=== PATIENT | female | born 1985 | race Caucasian/White ===

== ENCOUNTER 2016-07-30 09:21 | Emergency (ER) | payer OTHER ==
[2016-07-30 09:35] VITALS: RESP 18
--- NOTE | 2016-07-30 09:42 | CPEKG ---
Heart Rate: 81 RR Interval: 741 P-R Interval: 156 QRSD Interval: 104 QT Interval: 380 QTC Interval: 441 P Elba: 64 QRS Elba: -63 T Wave Elba: 49 EKG Severity - OTHERWISE NORMAL ECG - EKG Impression: SINUS RHYTHM EKG Impression: LEFT AXIS DEVIATION Electronically Signed By: Mattie Aj 30-Jul-2016 16:09:40
--- NOTE | 2016-07-30 09:58 | EDPHY ---
H & P Time Seen by Provider: 07/30/16 09:40 HPI/ROS: CHIEF COMPLAINT: Chest tightness HISTORY OF PRESENT ILLNESS: This patient is a 31-year-old female who presents to the Emergency Department complaining of episodic left-sided chest tightness over the past few weeks. In May, she first experienced an episode of acute onset chest tightness, dyspnea, and lightheadedness while [place] the [place] in [facility]. On Saturday, two days prior to arrival, her complaints recurred when she arrived in [facility]; she was unable to hike secondary to lightheadedness but felt normal by the time she returned to [place]. Yesterday, she began to experience similar sensation of dyspnea and chest tightness while riding her bicycle in town. She has had a persistent squeezing sensation to her left anterior chest since that time. She denies leg pain or swelling. No history of DVT or PE, no oral contraceptive use. She is a non-smoker. Familial history of CAD. REVIEW OF SYSTEMS: Constitutional: No fever, no chills Eyes: No visual changes ENT: No sore throat Respiratory: No cough, +shortness of breath Cardiac: +chest discomfort Gastrointestinal: No nausea, no vomiting, no abdominal pain Genitourinary: No hematuria, no dysuria Musculoskeletal: No leg pain or swelling Skin: No rash Neurological: +lightheadedness, no headache, no numbness, no weakness Psychiatric: No depression Past Medical/Surgical History: Denies Social History: Non-smoker. Drinks alcohol socially. Lives in [place]. Smoking Status: Never smoked Physical Exam: General Appearance: Alert, no distress Eyes: Pupils equal and round, no conjunctival pallor or injection ENT, Mouth: Mucous membranes moist Neck: Normal inspection Respiratory: Lungs are clear to auscultation Cardiovascular: Regular rate and rhythm Gastrointestinal: Abdomen is soft and non- tender Neurological: A&O, nonfocal, normal gait Skin: Warm and dry, no rash Extremities: Nontender, no pedal edema Psychiatric: Mood and affect normal Constitutional: Initial Vital Signs Temperature (C) 36.7 C 07/30/16 09:25 Heart Rate 87 07/30/16 09:25 Respiratory Rate 18 07/30/16 09:25 Blood Pressure 115/81 H 07/30/16 09:25 O2 Sat (%) 99 07/30/16 09:25 O2 Delivery Mode Room Air Allergies/Adverse Reactions: No Known Allergies Allergy (Unverified 07/30/16 09:32) Home Medications: Medication Instructions Recorded NK [No Known Home Meds] 07/30/16 Medical Decision Making - Diagnostics EKG Interpretation: EKG interpreted by me reveals normal sinus rhythm, rate 81; left axis deviation ; no ST/T changes. Interpretation: normal EKG Imaging Results: Imaging Impressions Chest X-Ray 07/30/16 09:40 Impression: No acute findings in the chest. ED Course/Re-evaluation: 31-year-old female presents to the ED with complaints of episodic exertional dyspnea and chest tightness since May, most severe yesterday and today. She has no risk factors for cardiac disease or PE; however, will proceed with workup for both given her story. Labs obtained and are within normal ranges. D-dimer is negative. Chest x-ray reviewed by me is negative for acute disease. EKG obtained and is normal (as above). I discussed lab and imaging findings with the patient. She understands that she will need to follow-up with a primary care provider for further evaluation, possibly an echocardiogram. She is given strict return precautions and will be discharged home in good condition. After careful consideration and evaluation, I find no evidence of acute coronary syndrome. The patient has no risk factors for coronary disease, normal EKG and normal studies. In addition, I feel that I can safely exclude pulmonary embolism, with normal vital signs, normal oxygen saturation and normal D-dimer. In addition there is no evidence of pneumothorax, pneumonia, aortic dissection. Feel that she is safe and stable for discharge home. She will follow up tomorrow at [facility] as previously scheduled. Differential Diagnosis: Differential diagnosis includes though it is not limited to pneumonia, pneumothorax, pulmonary embolism, aortic dissection, pericarditis, acute coronary syndrome. - Data Points Laboratory Results: Laboratory Results 07/30/16 09:50 07/30/16 09:50 07/30/16 07/30/16 07/30/16 09:50 09:50 09:50 WBC RBC Hgb Hct MCV MCH MCHC RDW Plt Count MPV Neut % (Auto) Lymph % (Auto) [place] % (Auto) Eos % (Auto) Baso % (Auto) Nucleat RBC Rel Count Absolute Neuts (auto) Absolute Lymphs (auto) Absolute Monos (auto) Absolute Eos (auto) Absolute Basos (auto) Absolute Nucleated RBC Immature Gran % Immature Gran # D-Dimer < 0.27 ug/mLFEU ug/mLFEU (0.00-0.50) Sodium 140 mEq/L mEq/L (134-144) Potassium 4.2 mEq/L mEq/L (3.5-5.2) Chloride 105 mEq/L mEq/L (97-110) Carbon Dioxide 24 mEq/l mEq/l (22-31) Anion Gap 11 mEq/L mEq/L (8-16) BUN 15 mg/dL mg/dL (7-23) Creatinine 0.8 mg/dL mg/dL (0.6-1.0) Estimated GFR > 60 Glucose 92 mg/dL mg/dL (70-100) Calcium 10.2 mg/dL mg/dL (8.5-10.4) Beta HCG, Qual NEGATIVE 07/30/16 09:50 WBC 5.83 10^3/uL 10^3/uL (3.80-9.50) RBC 4.86 10^6/uL 10^6/uL (4.18-5.33) Hgb 14.8 g/dL g/dL (12.6-16.3) Hct 43.9 % % (38.0-47.0) MCV 90.3 fL fL (81.5-99.8) MCH 30.5 pg pg (27.9-34.1) MCHC 33.7 g/dL g/dL (32.4-36.7) RDW 14.2 % % (11.5-15.2) Plt Count 270 10^3/uL 10^3/uL (150-400) MPV 9.7 fL fL (8.7-11.7) Neut % (Auto) 52.5 % % (39.3-74.2) Lymph % (Auto) 37.2 % % (15.0-45.0) [place] % (Auto) 7.4 % % (4.5-13.0) Eos % (Auto) 2.2 % % (0.6-7.6) Baso % (Auto) 0.5 % % (0.3-1.7) Nucleat RBC Rel Count 0.0 % % (0.0-0.2) Absolute Neuts (auto) 3.06 10^3/uL 10^3/uL (1.70-6.50) Absolute Lymphs (auto) 2.17 10^3/uL 10^3/uL (1.00-3.00) Absolute Monos (auto) 0.43 10^3/uL 10^3/uL (0.30-0.80) Absolute Eos (auto) 0.13 10^3/uL 10^3/uL (0.03-0.40) Absolute Basos (auto) 0.03 10^3/uL 10^3/uL (0.02-0.10) Absolute Nucleated RBC 0.00 10^3/uL 10^3/uL (0-0.01) Immature Gran % 0.2 % % (0.0-1.1) Immature Gran # 0.01 10^3/uL 10^3/uL (0.00-0.10) D-Dimer Sodium Potassium Chloride Carbon Dioxide Anion Gap BUN Creatinine Estimated GFR Glucose Calcium Beta HCG, Qual Departure - Departure Disposition: Home, Routine, Self-Care Clinical Impression: Dyspnea Qualifiers: Dyspnea type: dyspnea on exertion Qualified Code(s): R06.09 - Other forms of dyspnea Chest pain Qualifiers: Chest pain type: chest pain on breathing Qualified Code(s): R07.1 - Chest pain on breathing Condition: Good Instructions: Dyspnea (ED) Additional Instructions: 1. Follow-up with a primary care provider tomorrow as scheduled for further evaluation of your shortness of breath and chest discomfort. 2. Return to the Emergency Department with worsening chest pain, increased shortness of breath, lightheadedness or fainting, weakness, confusion, or for other serious concerns. Referrals: Tamika Maldonado, [Doctor of Osteopathy] - As per Instructions Report Scribed for: Mattie Aj Report Scribed by: Cassandra Schmidt Date of Report: 07/30/16 Time of Report: 09:53 Physician Review and Approval Statement: 07/30/16 09:53 Portions of this note were transcribed by a medical management specialist. I personally performed a history, physical exam, medical decision making, and confirmed accuracy of information the transcribed note.
[2016-07-30 10:03] LABS: % IMMATURE GRANULYOCYTES 0.2 % (0.0-1.1); ABSOLUTE IMMATURE GRANULOCYTES 0.01 10^3/uL (0.00-0.10); ADD DIFF? NO; ADD MORPH? NO; ADD SCAN? NO; ATYPICAL LYMPHOCYTE FLAG 40 (0-99); FRAGMENT RBC FLAG 10 (0-99); HEMATOCRIT 43.9 % (38.0-47.0); HEMOGLOBIN 14.8 g/dL (12.6-16.3); LEFT SHIFT FLG 0 (0-99); LIPEMIA HEMOLYSIS FLAG 80 (0-99); MEAN CELL HEMOGLOBIN 30.5 pg (27.9-34.1); MEAN CELL HEMOGLOBIN CONCENTR. 33.7 g/dL (32.4-36.7); MEAN CELL VOLUME 90.3 fL (81.5-99.8); MEAN PLATELET VOLUME 9.7 fL (8.7-11.7); PLATELET CLUMPS FLAG 0 (0-99); PLATELET COUNT 270 10^3/uL (150-400); RED BLOOD CELL COUNT 4.86 10^6/uL (4.18-5.33); RED CELL DISTRIBUTION WIDTH 14.2 % (11.5-15.2)
[2016-07-30 10:16] LABS: ANION GAP 11 mEq/L (8-16); CALCIUM 10.2 mg/dL (8.5-10.4); CARBON DIOXIDE 24 mEq/l (22-31); CHLORIDE 105 mEq/L (97-110); CREATININE 0.8 mg/dL (0.6-1.0); GLOMERULAR FILTRATION RATE > 60; GLUCOSE 92 mg/dL (70-100); POTASSIUM 4.2 mEq/L (3.5-5.2); SODIUM 140 mEq/L (134-144)
[2016-07-30] MEDS ORDERED: KETOROLAC 30 MG/1 ML SDV IVP ONE (10:36)
[2016-07-30 10:53] VITALS: BP 121/52; PULSE 81; TEMP 98.4; O2SAT 97
== END 2016-07-30 10:51 | disposition home or self-care (01) ==
DX: R07.1 Chest pain on breathing (principal); R06.09 Other forms of dyspnea
CPT/HCPCS: 96374; J1885

== ENCOUNTER 2017-04-27 18:46 | Emergency (ER) | payer OTHER ==
[2017-04-27 18:53] VITALS: RESP 18; TEMP 98.2
[2017-04-27 22:54] LABS: PLATELET COUNT 207 10^3/uL (150-400)
--- NOTE | 2017-04-27 23:17 | EDPHY ---
H & P Stated Complaint: snowboarding today/no known inj/menstruating/feels iud position has changed - Personal History LMP (Females 10-55): Now Current Tetanus/Diphtheria Vaccine: Yes - Medical/Surgical History Hx Asthma: No Hx Chronic Respiratory Disease: No Hx Diabetes: No Hx Cardiac Disease: No Hx Renal Disease: No Hx Cirrhosis: No Hx Alcoholism: No Hx HIV/AIDS: No Hx Splenectomy or Spleen Trauma: No Other PMH: GERD - Social History Smoking Status: Never smoked Time Seen by Provider: 04/27/17 21:41 HPI/ROS: Chief complaint: Possible malpositioned IUD History of present illness: This is a 31-year-old female who presents to the emergency department for evaluation of a possible malpositioned IUD. She was snowboarding today, there was no specific trauma, however she has developed some pelvic cramping. She is concerned her IUD is malpositioned. She can now feel the strings which she normally does not. She is wondering if pressure differential from going to the mountains is the possible cause. She denies other associated signs or symptoms including no vaginal discharge, no bleeding, no abdominal pain, no nausea, vomiting or diarrhea, no urinary symptoms. Review of systems: A 10 point review of systems was obtained and other than described above was negative (Cesario Nuñez) - Physical Exam Exam: General Appearance: Alert, nontoxic. Eyes: Pupils equal and round no injection. Respiratory: Chest is non tender, lungs are clear to auscultation. Cardiac: regular rate and rhythm Gastrointestinal: Abdomen is soft and non tender, no masses, bowel sounds normal. Musculoskeletal: Neck is supple and non tender. Extremities have full range of motion and are non tender. Skin: No rashes or lesions. (Cesario Nuñez) Constitutional: Initial Vital Signs Temperature (C) 36.8 C 04/27/17 18:50 Heart Rate 80 04/27/17 18:50 Respiratory Rate 18 04/27/17 18:50 Blood Pressure 112/84 H 04/27/17 18:50 O2 Sat (%) 98 04/27/17 18:50 O2 Delivery Mode Room Air Allergies/Adverse Reactions: No Known Allergies Allergy (Verified 04/27/17 18:50) Home Medications: Medication Instructions Recorded NK [No Known Home Meds] 07/30/16 Medical Decision Making - Diagnostics Imaging: Discussed imaging studies w/ columnist/commentator Radiologist ED Course/Re-evaluation: Patient seen under the supervision of my secondary supervising physician Dr. Velma Ohara. Patient presents to the emergency department for pelvic discomfort. She is concerned her IUD is out of position. Ultrasound is obtained and confirms normal position. She is nontoxic. Vital signs are stable. She is discharged home. She is asked to follow up with her primary care doctor for recheck. Return precautions are given. (Cesario Nuñez) Differential Diagnosis: Included but not limited to malpositioned IUD, uterine perforation, an associated complications (Cesario Nuñez) Other Provider: The patient was evaluated and managed by the Physician Granulator Machine Operator. I discussed the patient's presentation and course with the midlevel provider with them and agree with the evaluation. My co-signature indicates that I have reviewed this chart and I agree with the findings and plan of care as documented. I am the secondary supervising physician. (Velma Ohara) - Data Points Laboratory Results: Laboratory Results 04/27/17 22:40 04/27/17 22:40 Departure - Departure Disposition: Home, Routine, Self-Care Clinical Impression: Pelvic pain in female Condition: Good Instructions: Pelvic Pain in Women (ED) Additional Instructions: Follow-up with your primary care doctor this week for recheck If symptoms worsen or new symptoms develop return to the emergency room for recheck Referrals: Juany Hong PA [Primary Care Provider] - As per Instructions
[2017-04-27 23:40] VITALS: BP 111/72; PULSE 76; O2SAT 96
== END 2017-04-27 23:40 | disposition home or self-care (01) ==
DX: R10.2 Pelvic and perineal pain (principal)

== ENCOUNTER → 2017-05-16 | Outpatient (CLI) | payer OTHER | LOC: BMCIMAGING 14:54 | PROVIDERS: ATTEND Physician Assistant Medical | DX: E04.1 Nontoxic single thyroid nodule (principal) | CPT/HCPCS: 76536-PO ==

== ENCOUNTER → 2017-09-09 | Outpatient (CLI) | payer OTHER | LOC: FIMAGING 07:05 | PROVIDERS: ATTEND Physician Assistant | DX: R94.5 Abnormal results of liver function studies (principal) ==

== ENCOUNTER → 2017-10-23 | Outpatient (CLI) | payer OTHER | LOC: FCPNEURO 21:30 | PROVIDERS: ATTEND Student in an Organized Health Care Education/Training Program | DX: G47.33 Obstructive sleep apnea (adult) (pediatric) (principal) ==